=== PATIENT | male | born 1980 | race Native Hawaiian/Other Pacific Islander ===

== ENCOUNTER 2020-08-13 10:19 | Emergency (ER) | payer OTHER ==
[~2020-08-13] VITALS: Ht 182.9 cm; Wt 111.1 kg
[2020-08-13 10:34] VITALS: TEMP 96.7
[2020-08-13 12:12] VITALS: BP 123/74
== END 2020-08-13 12:13 | disposition home or self-care (01) ==
LOC: ED 10:19
DX: M25.512 Pain in left shoulder (principal); M25.522 Pain in left elbow; W10.2XXA Fall (on)(from) incline, initial encounter; Y92.89 Other specified places as the place of occurrence of the external cause
CPT/HCPCS: 96372; 99283; J1885; J2360